=== PATIENT | male | born 1990 | race Caucasian/White ===

== ENCOUNTER 2020-10-22 12:43 | Day surgery (SDC) | payer OTHER ==
[2020-10-22] MEDS ORDERED: LACTATED RINGERS 1,000 ML IV ONE ×2 (12:48→15:29)
[2020-10-22] MEDS ORDERED: MIDAZOLAM 2 MG/2 ML VIAL ONE ×3 (14:50→15:07)
[2020-10-22] MEDS ORDERED: fentaNYL 250 MCG/5 ML VIAL ONE (14:50)
[2020-10-22 15:38] VITALS: BP 115/71
== END 2020-10-22 12:44 | disposition home or self-care (01) ==
LOC: SDS 12:43
PROVIDERS: ATTEND Surgery
PROC: 0DBB8ZX Excision of Ileum, Via Natural or Artificial Opening Endoscopic, Diagnostic (ICD-10-PCS; 2020-10-22)
PROC: 0DBM8ZX Excision of Descending Colon, Via Natural or Artificial Opening Endoscopic, Diagnostic (ICD-10-PCS; 2020-10-22)
PROC: 0DBK8ZX Excision of Ascending Colon, Via Natural or Artificial Opening Endoscopic, Diagnostic (ICD-10-PCS; principal; 2020-10-22 14:30)
DX: K92.1 Melena (principal); R19.4 Change in bowel habit
CPT/HCPCS: 45380; J3010; J7120

== ENCOUNTER 2020-11-19 07:52 | Outpatient (CLI) | payer OTHER ==
--- NOTE | 2020-11-19 09:54 | CT Report ---
PROCEDURE: Sinuses INDICATIONS: HEADACHE, LT FRONT SINUS PAIN AND PRESSURE TECHNIQUE: Noncontrast 3.0 mm axial images acquired from the frontal sinuses to the mid-sella, with coronal and sagittal reformats. For radiation dose reduction, the following was used: automated exposure control , adjustment of mA and/or kV according to patient size. COMPARISON: None. FINDINGS: Image quality: Excellent. Maxillary Sinuses: No bony remodeling or destruction. Mild inferior maxillary sinus mucosal thickeni ng up to 3 mm. Ethmoid Air Cells: No bony remodeling or destruction. Mild bilateral anterior ethmoid air cell mucos al thickening. Sphenoid Sinuses: No bony remodeling or destruction. Sinuses are clear. Frontal Sinuses: No bony remodeling or destruction. Mild inferior frontal sinus mucosal thickening w ithout obstruction of the frontoethmoid recesses. Ostiomeatal Complexes: Ostiomeatal complexes are patent. No Josefa cells. Miscellaneous: Visualized intra-orbital contents are normal. Bilateral estephanie bullosa. No nasal sep masha deviation. IMPRESSION: Trace mucosal thickening in the frontal sinuses, maxillary sinuses, and anterior ethmoid air cells. N o findings of acute or chronic sinusitis. Bilateral estephanie bullosa. Reviewed by: Christopher Bingham MD on 11/19/2020 9:53 AM PST Approved by: Christopher Bingham MD on 11/19/2020 9:53 AM PST Station ID: [id number]
== END 2020-11-19 07:53 | disposition home or self-care (01) ==
LOC: DI 07:52
PROVIDERS: ATTEND Physician Assistant Medical
DX: R51.0 Headache with orthostatic component, not elsewhere classified (principal)

== ENCOUNTER 2021-06-18 19:14 | Emergency (ER) | payer OTHER ==
[2021-06-18 19:24] VITALS: BP 150/90
[2021-06-18 19:40] LABS: BILIRUBIN,URINE NEGATIVE (NEGATIVE); GLUCOSE, URINE (UA) NEGATIVE (NEGATIVE); KETONES,URINE (UA) NEGATIVE (NEGATIVE); LEUKOCYTE ESTERASE, URINE NEGATIVE (NEGATIVE); NITRITE,URINE NEGATIVE (NEGATIVE); OCCULT BLOOD,URINE TRACE-LYSE (NEGATIVE); PROTEIN,URINE NEGATIVE (NEGATIVE); UROBILINOGEN,URINE 0.2 (NORMAL) E.U./dL (NORMAL)
[2021-06-18 19:41] LABS: CLARITY,URINE CLEAR (CLEAR)
--- NOTE | 2021-06-18 20:52 | Ultrasound Report ---
PROCEDURE: Testicle w/Doppler INDICATIONS: testicular pain TECHNIQUE: Real-time scanning was performed of the scrotum and testicles, with image documentation. Color and p ulse Doppler interrogation was performed of both testicles. COMPARISON: None. FINDINGS: Right: Testicle is normal in size at 4.4 x 2.2 x 2.6 cm, and homogenous in echotexture. Epididymis is normal in overall size and morphology. Small hydrocele. No varicocele. Overlying scrotal skin is normal in thickness. Normal arterial and venous flow. Left: Testicle is normal in size at 3.9 x 2.3 x 3.0 cm, and homogeneous in echotexture. Epididymis is normal in overall size and morphology. Small hydrocele. The pampiniform plexus demonstrates varico ying. Overlying scrotal skin is normal in thickness. Normal arterial and venous flow. Doppler: Color and pulse Doppler demonstrate normal and symmetric arterial flow in both testicles. IMPRESSION: 1. Small bilateral hydroceles. 2. Left varicocele. 3. No acute abnormality. Reviewed by: Jose Daniel Merritt on 06/18/2021 8:50 PM PDT Approved by: Jose Daniel Merritt on 06/18/2021 8:50 PM PDT Station ID: [id number]
--- NOTE | 2021-06-18 20:54 | ED Physician Documentation ---
History of Present Illness - Stated complaint Stated Complaint: MALE - Chief complaint Chief Complaint: General - History obtained from History obtained from: Patient - Additonal information Additional information: 31-year-old gentleman with gradual onset right testicular pain over the last 3 days or so. There was no injury. It is not positional. It is at the top of the right testicle. He has no concern for STDs per se. It is not bad enough that he requires pain medication. No associated nausea. Review of Systems Constitutional: reports: Reviewed and negative Eyes: reports: Reviewed and negative Ears: reports: Reviewed and negative Nose: reports: Reviewed and negative Throat: reports: Reviewed and negative Cardiac: reports: Reviewed and negative Respiratory: reports: Reviewed and negative PD PAST MEDICAL HISTORY - Past Medical History Cardiovascular: None Respiratory: None Endocrine/Autoimmune: None GI: None : None HEENT: None Psych: None Musculoskeletal: None Derm: None - Present Medications Home Medications: Ambulatory Orders Medication Instructions Recorded Confirmed Cetirizine HCl [Zyrtec] 10 mg PO DAILY 10/21/20 10/22/20 Fluticasone [Flonase] 1 sprays VENITA DAILY 10/21/20 10/22/20 - Allergies Allergies/Adverse Reactions: Allergies Allergy/AdvReac Type Severity Reaction Status Date / Time No Known Drug Allergies Allergy Verified 06/18/21 19:20 - Social History Does the pt smoke?: No Smoking Status: Never smoker PD ED PE NORMAL - Vitals Vital signs reviewed: Yes - General General: Alert and oriented X 3, No acute distress - Abdomen Abdomen: Normal bowel sounds, Soft, Non tender - Male Male : Other (Testicles are grossly normal with normal lie, normal cremaster reflexes. No inguinal masses or tenderness. No lymphadenopathy. The right testicle is nontender. There is some fullness at the superior part of the right testicle and that is where he points as the location of pain.) - Back Back: No CVA TTP, No spinal TTP - Neuro Neuro: Alert and oriented X 3, Normal speech Results - Vitals Vitals: Vital Signs - 24 hr 06/18/21 19:21 Temperature 36.5 C Heart Rate 90 Respiratory 16 Rate Blood Pressure 150/90 H O2 Saturation 98 Oxygen O2 Source Room air - Labs Labs: Laboratory Tests 06/18/21 19:37 Urine Color LT. YELLOW Urine Clarity CLEAR Urine pH 6.0 Ur Specific Casanova 1.020 Urine Protein NEGATIVE Urine Glucose (UA) NEGATIVE Urine Ketones NEGATIVE Urine Occult Blood TRACE-LYSE Urine Nitrite NEGATIVE Urine Bilirubin NEGATIVE Urine Urobilinogen 0.2 (NORMAL) Ur Leukocyte Esterase NEGATIVE Ur Microscopic Review NOT INDICATED Urine Culture Comments NOT INDICATED - Rads (name of study) Scrotal ultrasound is grossly normal with small bilateral hydroceles and a left varicocele but no evidence of torsion or epididymitis. Radiology: Final report received PD MEDICAL DECISION MAKING - ED course ED course: 31-year-old gentleman with benign exam and right testicular pain. No tenderness, normal lie, nothing in the history or physical or ultrasound to suggest torsion. Departure - Departure Disposition: 01 Home, Self Care Clinical Impression: Testicular pain, right Condition: Good Record reviewed to determine appropriate education?: Yes Instructions: ED Testicular Pain UKO Comments: Return if you worsen, follow-up with your doctor this week for recheck.
== END 2021-06-18 21:18 | disposition home or self-care (01) ==
LOC: ED 19:14
DX: N50.811 Right testicular pain (principal); N43.3 Hydrocele, unspecified; I86.1 Scrotal varices
CPT/HCPCS: 81001; 81003; 87086; 93975; 99283; 99284

== ENCOUNTER 2025-06-22 09:08 | Inpatient (IN) ==
--- OUTSIDE RECORDS SUMMARY | 2025-06-22 10:06 | EXTERNAL MEDICAL SUMMARY RPT | Continuity of Care Document ---
Author Organization [place] Address [address] [place] [address] Phone Problems date description facility 2025-06-22 08:22 [facility], [facility] 2025-06-22 08:22 Streptococcal pharyngitis id[facility] 2025-06-22 08:22 [facility] 2025-06-22 08:22 Pain in right forearm [facility] 2025-06-22 08:22 Other specified soft tissue dis orders [facility] 2025-06-22 08:22 Tachycardia, unspecified [facility] 2025-06-22 09:50 Sepsis, unspecified [facility] 2025-06-22 09:50 [facility] 2025-06-22 09:50 Acute pharyngitis, unspecified [facility] 2025-06-22 09:50 [facility]25-[facility]-22 09:50 Pain in right forearm [facility] 2025-06-22 09:50 Other specified soft tissue dis orders [facility] 2025-06-22 09:50 Tachycardia, unspecified [facility] Social History date description facility
--- NOTE | 2025-06-22 10:12 | ED Physician Documentation ---
PD HPI URI Stated complaint Stated Complaint: RT ARM SWELLING, FEVER, SORE THROAT, LOSS OF VOICE Chief complaint Chief Complaint: General History obtained from History obtained from: Patient History of Present Illness Timing - onset: How many weeks ago (1) Timing duration: Weeks (1) Timing details: Gradual onset and Still present Associated symptoms: Fever, Chills, Sore throat and Swollen nodes Contributing factors: No Travel Improves by: No Rest Similar symptoms before: Has not had sx before Recently seen: Clinic (onset of right forearm pain yesterday and today as well, so went to walk in clinic and rferredt o ED.) Treatment prior to arrival Treatment prior to arrival: given IM dose of rocephin at [facility]. Meds/Allgy Home Medications Ambulatory Orders Medication Instructions Recorded Confirmed No Known Home Medications 06/22/2506/02 Allergies Allergies Allergy/AdvReac Type Severity Reaction Status Date / Time No Known Drug Allergies Allergy Verified 06/22/25 09:50 PFSH Active Problems All Active Problems (Updated 06/22/25 @ 15:57 by Uriel Ellis, DO) Hyponatremia (Acute) Elevated LFTs (Acute) Sepsis (Acute) Cellulitis of right arm (Acute) Tachycardia (Acute) Strep pharyngitis (Acute) Pain and swelling of right forearm (Acute) Social History Social History (Updated 06/22/25 @ 07:47 by Kimberlyn Torres) Smoking Status: Never smoker Do you vape?: No Level: Independent Do you feel safe in your home environment?: Yes History of physical, verbal, emotional, or financial abuse?: No Substance Use: denies use Exam Exam Vital Signs: Vital Signs x48h Temp Pulse Resp BP Pulse Ox 06/22/25 10:52 136 H 98/66 99 06/22/25 10:25 132 H 100/62 99 06/22/25 09:45 39.6 C H 134 H 14 99/60 98 tachycardic and hypotensive, with fever. Constitutional normal general appearance, distress noted (moderate) and average body habitus HENMT oropharynx abnormal (tonsils enlarged) and (exudates) Neck/C-Spine supple and no meningeal signs Lymph lymphadenopathy noted (anterior cervical) Respiratory breath sounds equal bilaterally and normal respiratory effort Cardiovascular heart rate abnormal (tachycardic), regular rhythm noted and no murmur Gastrointestinal abdomen soft to palpation, nontender to palpation and nondistended Extremities right forearm with swelling, redness and tenderness proximal ulnar aspect, some posterior bursal effusion. Not apparent joint fluid. No axillary nodes. no skin sores. Psychiatry oriented x3 and thought process normal Skin jaundice noted (mild jaundice noted. ) Results Vitals Vitals: Vital Signs - 24 hr 06/22/25 09:45 06/22/25 10:25 06/22/25 10:52 Temperature 39.6 C H Temperature Source Oral Pulse Rate 134 H 132 H 136 H Respiratory Rate 14 Blood Pressure 99/60 100/62 98/66 O2 Saturation 98 99 99 O2 Source Room air Room air Room air Pain Intensity 2 4 4 Oxygen O2 Source Room air Labs Labs: Laboratory Tests 06/22/25 10:55 WBC 21.5 H RBC 4.41 L Hgb 12.2 L Hct 35.8 L MCV 81.2 MCH 27.7 MCHC 34.1 RDW 12.7 Plt Count 319 MPV 11.0 Neut # (Auto) Not Reportable Lymph # (Auto) Not Reportable Ferry # (Auto) Not Reportable Eos # (Auto) Not Reportable Baso # (Auto) Not Reportable Absolute Nucleated RBC Not Reportable Total Counted 100 Band Neuts % (Manual) 24 H Abnorm Lymph % (Manual) 0 Metamyelocytes % 2 H Myelocytes % 2 H Nucleated RBC % Not Reportable Neutrophils # (Manual) 20.4 H Lymphocytes # (Manual) 0.0 L Monocytes # (Manual) 0.2 Eosinophils # (Manual) 0.0 Basophils # (Manual) 0.0 Differential Comment MANUAL DIFFERENTIAL Platelet Estimate NORMAL (130-450,000) RBC Morph Micro Appear 2+ ANISOCYTOSIS Sodium 122 L Potassium 3.5 Chloride 82 L Carbon Dioxide 28 Anion Gap 12.0 BUN 12 Creatinine 1.5 H Estimated GFR (MDRD) 53 L Glucose 128 H Lactic Acid 2.9 H Calcium 8.2 L Magnesium 1.2 L Total Bilirubin 3.3 H AST 104 H ALT 225 H Alkaline Phosphatase 114 Total Protein 6.5 Albumin 3.4 Globulin 3.1 Albumin/Globulin Ratio 1.1 Rads (name of study) chest xray: Relevant Findings:: Final report received and EMP independent interpretation of test (no noted infiltrates. normal heart size. ) Interpretation: EXAM: [id number] XR/[id number] ([id number]) PROCEDURE: XR Chest 1V INDICATIONS: Sepsis TECHNIQUE: One view of the chest was acquired. COMPARISON: None. FINDINGS: Surgical changes and devices: None. Lungs and pleura: No pleural effusions or pneumothorax. No consolidation. Mediastinum: Mediastinal contours appear normal. Heart size is normal. Bones and chest wall: No suspicious bony lesions. Overlying soft tissues appear unremarkable. IMPRESSION: No acute cardiopulmonary process. Reviewed by: Saad Leroy MD on 06/22/2025 11:05 AM PDT right forearm US: Relevant Findings:: Final report received Interpretation: EXAM: [id number] US/EXNVLTD ([id number]) PROCEDURE: US Soft Tissue Extremity Lmted INDICATIONS: right forearm swelling and red; has strep throat TECHNIQUE: Real-time scanning was performed of the right forearm and elbow, with image documentation. COMPARISON: None. FINDINGS: In the area of concern of the right forearm and elbow, there is subcutaneous fat edema with mild hyperemia on color Doppler. Overlying dermal thickening. Along the posterior elbow, corresponding to the area of swelling, is a irregularly bordered 3.6 x 3.5 x 1.4 cm hypoechoic focus with thin internal septations. There is mild adjacent hyperemia on color Doppler. IMPRESSION: Right forearm and elbow cellulitis with a 3.6 cm hypoechoic focus along the posterior elbow, which may represent a developing abscess versus possible infectious olecranon bursitis. The sterility of this fluid collection cannot be determined by ultrasound. Reviewed by: Saad Leroy MD on 06/22/2025 12:24 PM PD PD Medical Decision Making ED course Complexity details: considered differential and d/w patient ED course: The patient started with sore throat and fevers and general malaise about a week ago and has had poor oral intake due to the throat pain. He had been feeling feverish as well and has been taking some ibuprofen and Tylenol. He states his oral intake has been less and is feeling generally weak. He noted yesterday into today redness pain and swelling in the right forearm and around the elbow as well. Seen at walk-in care clinic and was noted to be tachycardic and febrile to 39 with tachycardia to 130 and soft blood pressure. Referred to the ER. They did do a rapid strep test there was positive. Here in the ER he is noted to have sepsis markers of tachycardia, febrile, and he does appear dry mucous membranes. He is mentating well. His forearm does show swelling and tenderness in the proximal forearm to around the elbow. The elbow itself does not appear to have a effusion. Ultrasound was performed and showed cellulitic changes with a olecranon fluid collection approximately 3.6 cm. The patient does have apparent sepsis with an elevated white count of 21,000 with 24% bands. He has a elevated lactate at 2.9. His creatinine is elevated at 1.5 without a prior baseline. LFTs show bilirubin at 3.3 and AST and ALT only mildly elevated at 104 and 225. Alk phos is normal. Sounds more likely related to illness. I deferred any abdominal imaging as of yet. Sodium is 122 and again presumed to recent hydration and poor intake and illness. I did subsequently then contact the hospitalist to review the findings and agreement is the patient is ill enough to need hospitalization. Discharge Plan Discharge Patient Disposition: [facility] DC/Xfer Condition: Stable Clinical Impression: Pain and swelling of right forearm, Strep pharyngitis, Tachycardia, Cellulitis of right arm, Elevated LFTs Sepsis Qualifiers: Sepsis type: sepsis due to unspecified organism Sepsis acute organ dysfunction status: unspecified Qualified Code(s): A41.9 - Sepsis, unspecified organism Interventions: ED Admission Assessment Last Done: 06/22/25 13:35 Vitals documented within 30 minutes of discharge?: Yes
[2025-06-22 11:04] LABS: HCT - HEMATOCRIT 35.8 % (42.0-52.0); HGB - HEMOGLOBIN 12.2 g/dL (14.0-18.0); MEAN PLATELET VOLUME 11.0 fL (7.4-11.4); PLT - PLATELET COUNT 319 10^3/uL (130-450); RED CELL DISTRIBUTION WIDTH 12.7 % (12.0-15.0)
[2025-06-22 11:08] LABS: ABNORMAL LYMPHS % (MANUAL) 0 %; BASOPHILS # (MANUAL) 0.0 10^3/uL (0-0.1); EOSINOPHILS # (MANUAL) 0.0 10^3/uL (0-0.7); LYMPHOCYTES # (MANUAL) 0.0 10^3/uL (1.5-3.5); LYMPHOCYTES % (MANUAL) 0 %
--- NOTE | 2025-06-22 11:08 | XRAY Report ---
PROCEDURE: XR Chest 1V INDICATIONS: Sepsis TECHNIQUE: One view of the chest was acquired. COMPARISON: None. FINDINGS: Surgical changes and devices: None. Lungs and pleura: No pleural effusions or pneumothorax. No consolidation. Mediastinum: Mediastinal contours appear normal. Heart size is normal. Bones and chest wall: No suspicious bony lesions. Overlying soft tissues appear unremarkable. IMPRESSION: No acute cardiopulmonary process. Reviewed by: Saad Leroy MD on 06/22/2025 11:05 AM PDT Approved by: Saad Leroy MD on 06/22/2025 11:05 AM PDT Station ID: [id number]
[2025-06-22 11:24] LABS: BAND NEUTROPHILS % (MANUAL) 24 %; METAMYELOCYTES % (MANUAL) 2 %; MONOCYTES # (MANUAL) 0.2 10^3/uL (0.0-1.0); MYELOCYTES % (MANUAL) 2 %; NEUTROPHILS # (MANUAL) 20.4 10^3/uL (1.5-6.6); PLATELET ESTIMATE, MANUAL NORMAL (130-450,000) (NORMAL); RBC MORPHOLOGY (MULTIPLE) 2+ ANISOCYTOSIS (NORMAL)
[2025-06-22 11:25] LABS: ALT ALANINE AMINOTRANSFERASE 225.0 IU/L (10-60); AST ASPARTATE AMINOTRANSFERASE 104.0 IU/L (10-42); BUN - BLOOD UREA NITROGEN 12.0 mg/dL (6-20); CARBON DIOXIDE - CO2 28.0 mmol/L (21-32); CREATININE 1.5 mg/dL (0.6-1.3); GFR - MDRD 53.0 (>89)
--- NOTE | 2025-06-22 12:28 | Ultrasound Report ---
PROCEDURE: US Soft Tissue Extremity Lmted INDICATIONS: right forearm swelling and red; has strep throat TECHNIQUE: Real-time scanning was performed of the right forearm and elbow, with image documentation. COMPARISON: None. FINDINGS: In the area of concern of the right forearm and elbow, there is subcutaneous fat edema with mild hyperemia on color Doppler. Overlying dermal thickening. Along the posterior elbow, corresponding to the area of swelling, is a irregularly bordered 3.6 x 3.5 x 1.4 cm hypoechoic focus with thin internal septations. There is mild adjacent hyperemia on color Doppler. IMPRESSION: Right forearm and elbow cellulitis with a 3.6 cm hypoechoic focus along the posterior elbow, which may represent a developing abscess versus possible infectious olecranon bursitis. The sterility of this fluid collection cannot be determined by ultrasound. Reviewed by: Saad Leroy MD on 06/22/2025 12:24 PM PDT Approved by: Saad Leroy MD on 06/22/2025 12:24 PM PDT Station ID: [id number]
[2025-06-22] MEDS: SODIUM CHLORIDE 0.9% 2,430 ML IV STA (12:33)
[2025-06-22] MEDS: AMPICILLIN/SULBACTAM 3 GM in SODIUM CHLORIDE 0.9% MINIBAG 100 ML IV STA (12:40)
--- NOTE | 2025-06-22 13:26 | HISTORY & PHYSICAL EXAMINATION ---
Chief Complaint Chief Complaint Chief Complaint: Sore throat History of Present Illness Admitted From Admitted From:: ED History [facility]btained [facility] History obtained from: Patient, Family, EMR History of Present Illness HPI Comment/Other: This is a 35-year-old previously healthy male who presented after 2 weeks of sore throat. He has been at home trying to manage his symptoms with [id number] treatments. For reasons not quite clear to me, he sought care at the urgent care today. He was found to be strep positive. He additionally has a mass on his right elbow that is concerning for abscess versus septic bursitis. It appears cellulitic at least. In the ED, he was found to be febrile. Blood pressure is soft at 98/66. He has been tachycardic up to 136. Shock index is 1.4. He has started getting IV fluids in the ED, and his blood pressure has improved already. He will be admitted to the ICU with concern for invasive strep infection. I discussed with his as well, she confirms the above history. Patient and both agree that he is full code. Meds/Allgy Home Medications Ambulatory Orders Medication Instructions Recorded Confirmed No Known Home Medications 06/22/2506/02 Allergies Allergies Allergy/AdvReac Type Severity Reaction Status Date / Time No Known Drug Allergies Allergy Verified 06/22/25 09:50 PFSH Active Problems All Active Problems (Updated 06/22/25 @ 15:57 by Uriel Ellis, DO) Hyponatremia (Acute) Elevated LFTs (Acute) Sepsis (Acute) Cellulitis of right arm (Acute) Tachycardia (Acute) Strep pharyngitis (Acute) Pain and swelling of right forearm (Acute) Social History Social History (Updated 06/22/25 @ 07:47 by Kimberlyn Torres) Smoking Status: Never smoker Do you vape?: No Level: Independent Do you feel safe in your home environment?: Yes History of physical, verbal, emotional, or financial abuse?: No Substance Use: denies use POLST Patient has POLST: No Exam Exam Vital Signs: Vital Signs x48h Temp Pulse Pulse Resp BP BP Pulse Ox 06/22/25 15:00 128 H 21 123/61 95 06/22/25 14:00 132 H 31 H 152/73 H 100 06/22/25 13:40 37.9 C 134 H 23 141/91 H 100 06/22/25 10:52 136 H 98/66 99 06/22/25 10:25 132 H 100/62 99 06/22/25 09:45 39.6 C H 134 H 14 99/60 98 GEN: No acute distress, resting. Somnolent but arouses easily. Toxic appearing. HEENT: NC/AT, voice hoarse, Tonsils are normal size. Suppurative exudate along the posterior pharynx. Cervical LAD bilaterally. Cardiac: Tachycardic and regular. No murmurs appreciated. Pulm: Lungs CTA bilaterally, no cough, no wheezes Abdomen: Soft, nontender, nondistended. No rebound or guarding Extremities: Erythematous, warm mass on his right elbow with surrounding erythema. Tender. Neuro: Face symmetric, CN II through XII intact grossly. No focal deficits. Gait exam deferred Psych: Mood euthymic with congruent affect. Conclusion/Plan Problem List (1) Sepsis: Plan: Patient presents with septic physiology including fever, leukocytosis, tachycardia. He has been sick for the last 1 to 2 weeks. He has had a sore throat. He is found to be strep positive as below. Shock index 1.4 in the ED, has downgraded to 0.8. Got 1.2 L fluid bolus ordered in the ER, not sure if it completed. Held off on further given his hyponatremia. Likely source is his strep pharyngitis. He also has likely cellulitis or abscess in the right arm. Suspect of the same etiology. * Patient is at high risk for decompensation, admitted to the ICU * Treatment of strep as below * Follow-up blood cultures * Trend lactate * CBC AM * Defer further fluids until follow-up sodium lab, or if shock worsens Qualifiers: Sepsis acute organ dysfunction status: unspecified Sepsis type: sepsis due to unspecified organism Qualified Code(s): A41.9 - Sepsis, unspecified organism (2) Strep pharyngitis: Plan: Given his septic physiology, he is at risk for strep toxic shock syndrome and invasive streptococcal infection. * Admitting to the ICU as above * Starting on clindamycin, vancomycin and Zosyn * Follow-up culture sensitivities, likely de-escalate to clindamycin and Ancef (3) Cellulitis of right arm: Plan: POCUS in the ED did reveal a irregular bordered 3.6 x 3.5 cm area of focus in the right elbow. Olecranon bursitis versus developing abscess. I discussed his case with on-call orthopedics, Dr. Holcomb, who will try and drain it at bedside versus take him to the operating room to fully open it up. Patient says that his arm erythema has been worsening over the last day or so, only popped up around 06/20. * Patient n.p.o. for possible surgical procedure * Antibiotics as above (4) Hyponatremia: Plan: Sodium 121 on admission. Of unclear etiology. His history is most consistent with this being hypovolemic hyponatremia and low solute intake over the preceding days as he has not been eating or drinking much. He does not look particularly volume overloaded. However his urine collected in the ED does not look concentrated. Specific gravity is normal. This may be in part a syndrome of inappropriate antidiuretic hormone. The patient is not symptomatic, to does not need acute rise in sodium. * Check urine osmole, urine sodium, serum osmolality * Every 6 hour sodium checks * Undetermined chronicity of hyponatremia, limit Na rise by 8 points in 1 day. (5) Elevated LFTs: Plan: Likely multifactorial in the setting of his acute illness as well as multiple doses of Tylenol and [id number] treatments he has been using. * Trend CMP a.m. Lab Results 06/22/25 10:55 06/22/25 10:55
[2025-06-22] MEDS ORDERED: ONDANSETRON 4 MG/2 ML VIAL IVP PRN (13:32)
[2025-06-22] MEDS ORDERED: ONDANSETRON ODT 4 MG TABLET TL PRN (13:32)
[2025-06-22] MEDS ORDERED: oxyCODONE 5 MG TABLET PO PRN ×2 (13:32)
[2025-06-22] MEDS ORDERED: ALBUTEROL NEB 2.5 MG/3 ML INH PRN (13:32)
[2025-06-22] MEDS: ACETAMINOPHEN 325 MG TABLET PO PRN (14:08)
[2025-06-22] MEDS: CLINDAMYCIN 900 MG/50 ML 900 MG/50 ML BAG IV SCH (14:10)
[2025-06-22 16:32] LABS: GLUCOSE, URINE (UA) NEGATIVE (NEGATIVE); KETONES,URINE (UA) NEGATIVE (NEGATIVE); OCCULT BLOOD,URINE LARGE (NEGATIVE)
[2025-06-22] MEDS ORDERED: GADOTERATE MEGLUMINE 10 MMOL/20 ML VIAL ONE (17:10)
[2025-06-22] MEDS: MAGNESIUM SULFATE 2 GRAM 2 GM/50 ML BAG IV SCH (17:11)
[2025-06-22] MEDS: POTASSIUM CHLORIDE 20 MEQ TABLET PO SCH (17:11)
[2025-06-22] MEDS: SODIUM CHLORIDE FLUSH 0.9% 10 ML SYRINGE IVP SCH (17:13)
[2025-06-22] MEDS: LACTATED RINGERS 1,000 ML IV ONE ×2 (17:13→22:21)
[2025-06-22 17:17] LABS: AMORPHOUS SEDIMENT,UR Few /LPF; SQUAMOUS EPITHELIAL CELL,UR RARE Squamous (<= Few)
[2025-06-22 17:18] LABS: CASTS, URINE 26-50 Fine Granular /LPF
[2025-06-22] MEDS: GADOTERATE MEGLUMINE 10 MMOL/20 ML VIAL IVP ONE (19:03)
--- NOTE | 2025-06-22 19:13 | MRI Report ---
PROCEDURE: MRI Elbow RT W/WO INDICATIONS: Abscess vs necrotizing infection CONTRAST: 16.4ml Clariscan TECHNIQUE: Noncontrast coronal proton density fast spin echo and T2 fast spin echo with fat saturation, coronal T1 spin echo with fat saturation, axial and sagittal T1 spin echo and T2 fast spin echo with fat saturation through the elbow. Post-contrast coronal, axial, and sagittal T1 spin echo with fat saturation through the elbow. COMPARISON: None. FINDINGS: Image quality: Excellent. Lateral structures: The lateral ulnar collateral ligament and radial collateral ligament both appear intact. The overlying common extensor tendon also appears normal. Medial structures: The ulnar collateral ligament appears intact. The overlying common flexor tendon appears normal. The ulnar nerve appears normal in size and signal within the cubital tunnel. Anterior structures: The biceps and brachialis tendons both appear intact as they insert onto the proximal radius and ulna, respectively. No bicipitoradial bursal fluid. The median and radial neurovascular bundles appear normal; no focal muscle atrophy to suggest nerve impingement. Posterior structures: The triceps tendon appears intact. Fluid collection along expected location of the olecranon bursa measuring approximately 3.0 x 2.5 x 2.8 cm. Surrounding subcutaneous edema. Bone and cartilage: No suspicious osseous enhancement. No bone marrow contusions or fractures. No osteochondral injuries. Skin and subcutaneous fat: Circumferential subcutaneous edema. No deep fascial edema. No evidence of air. IMPRESSION: Olecranon bursitis. Correlate clinically for infection. No evidence of fasciitis, osteomyelitis or septic arthritis. Reviewed by: Tyler Varela MD on 06/22/2025 7:09 PM PDT Approved by: Tyler Varela MD on 06/22/2025 7:09 PM PDT Station ID: [id number]
[2025-06-22] MEDS: HEPARIN 5,000 UNIT/ML VIAL SUBQ SCH (20:14)
[2025-06-22] MEDS: SODIUM CHLORIDE FLUSH 0.9% 10 ML SYRINGE IVP PRN (20:14)
[2025-06-22] MEDS: KETOROLAC 30 MG/ML VIAL IVP PRN (21:26)
[2025-06-22] MEDS: ACETAMINOPHEN 1,000 MG/100 ML 1,000 MG/100 ML BAG IV ONE (23:44)
[2025-06-23] MEDS: LACTATED RINGERS 1,000 ML IV SCH (00:05)
[2025-06-23 05:07] LABS: HGB - HEMOGLOBIN 10.6 g/dL (14.0-18.0); RED CELL DISTRIBUTION WIDTH 13.2 % (12.0-15.0)
[2025-06-23 05:12] LABS: HCT - HEMATOCRIT 31.1 % (42.0-52.0); MEAN PLATELET VOLUME 11.7 fL (7.4-11.4); PLT - PLATELET COUNT 255 10^3/uL (130-450)
[2025-06-23 05:24] LABS: ALT ALANINE AMINOTRANSFERASE 143.0 IU/L (10-60); AST ASPARTATE AMINOTRANSFERASE 67.0 IU/L (10-42); BUN - BLOOD UREA NITROGEN 24.0 mg/dL (6-20); CARBON DIOXIDE - CO2 25.0 mmol/L (21-32); CREATININE 1.8 mg/dL (0.6-1.3); GFR - MDRD 43.0 (>89)
[2025-06-23 05:29] LABS: ABNORMAL LYMPHS % (MANUAL) 0 %; BASOPHILS # (MANUAL) 0.0 10^3/uL (0-0.1); EOSINOPHILS # (MANUAL) 0.0 10^3/uL (0-0.7); LYMPHOCYTES # (MANUAL) 0.0 10^3/uL (1.5-3.5); LYMPHOCYTES % (MANUAL) 0 %
[2025-06-23 05:37] LABS: PHOSPHORUS 4.5 mg/dL (2.5-5.0)
[2025-06-23 06:06] LABS: VBG PH 7.488 (7.31-7.41)
[2025-06-23 06:35] LABS: BAND NEUTROPHILS % (MANUAL) 33 %; MONOCYTES # (MANUAL) 0.5 10^3/uL (0.0-1.0); NEUTROPHILS # (MANUAL) 16.2 10^3/uL (1.5-6.6); PLATELET ESTIMATE, MANUAL NORMAL (130-450,000) (NORMAL); PLATELET MORPHOLOGY NORMAL APPEARANCE (NORMAL); RBC MORPHOLOGY (MULTIPLE) NORMAL APPEARANCE (NORMAL); WBC MORPHOLOGY (MULTIPLE) NORMAL APPEARANCE (NORMAL)
--- NOTE | 2025-06-23 09:23 | ANESTHESIA PROCEDURE NOTE ---
Pre-Anesthesia VS, & Labs Diagnosis Surgical Diagnosis:: cellulitis right arm Procedure Procedure: Irrigation and Debridement right arm Vitals Vital Signs: Temp Pulse Resp BP Pulse Ox 37.6 C 114 H 98 H 108/55 L 31 L 06/23/25 09:00 06/23/25 11:00 06/23/25 11:00 06/23/25 11:00 06/23/25 11:00 NPO NPO: >8 hours Lab Results Current Lab Results: Laboratory Tests 06/23/25 04:54: WBC 16.7 H, RBC 3.80 L, Hgb 10.6 L, Hct 31.1 L, MCV 81.8, MCH 27.9, MCHC 34.1, RDW 13.2, Plt Count 255, MPV 11.7 H, Neut # (Auto) Not Reportable, Lymph # (Auto) Not Reportable, Dare # (Auto) Not Reportable, Eos # (Auto) Not Reportable, Baso # (Auto) Not Reportable, Absolute Nucleated RBC Not Reportable, Total Counted 100, Band Neuts % (Manual) 33 H, Abnorm Lymph % (Manual) 0, Nucleated RBC % Not Reportable, Neutrophils # (Manual) 16.2 H, L ymphocytes # (Manual) 0.0 L, Monocytes # (Manual) 0.5, Eosinophils # (Manual) 0.0, Basophils # (Manual) 0.0, Differential Comment MANUAL DIFFERENTIAL, WBC Morphology NORMAL APPEARANCE, Platelet Estimate NORMAL (130-450,000), Platelet Morphology NORMAL APPEARANCE, RBC Morph Micro Appear NORMAL APPEARANCE, VBG pH 7.488 H, Ionized Calcium 1.02 L, Sodium 126 L, Potassium 3.9, Chloride 91 L, Carbon Dioxide 25, Anion Gap 10.0, BUN 24 H, Creatinine 1.8 H, Estimated GFR (MDRD) 43 L, Glucose 107 H, Calcium 7.4 L, Phosphorus 4.5, Magnesium 2.4 H, T otal Bilirubin 2.4 H, AST 67 H, ALT 143 H, Alkaline Phosphatase 74, Total Protein 5.1 L, Albumin 2.5 L, Globulin 2.6, Albumin/Globulin Ratio 1.0 06/23/25 00:47: Lactic Acid 1.4 06/22/25 21:22: Lactic Acid 2.7 H 06/22/25 16:00: Sodium 121 L 06/22/25 14:23: Lactic Acid 3.8 H* 06/22/25 10:55: WBC 21.5 H, RBC 4.41 L, Hgb 12.2 L, Hct 35.8 L, MCV 81.2, MCH 27.7, MCHC 34.1, RDW 12.7, Plt Count 319, MPV 11.0, Neut # (Auto) Not Reportable, Lymph # (Auto) Not Reportable, Dare # (Auto) Not Reportable, Eos # (Auto) Not Reportable, Baso # (Auto) Not Reportable, Absolute Nucleated RBC Not Reportable, Total Counted 100, Band Neuts % (Manual) 24 H, Abnorm Lymph % (Manual) 0, Metamyelocytes % 2 H, Myelocytes % 2 H, Nucleated RBC % Not Reportable, Neutrophils # (Manual) 20.4 H, Lymphocytes # (Manual) 0.0 L, Monocytes # (Manual) 0.2, Eosinophils # (Manual) 0.0, Basophils # (Manual) 0.0, Differential Comment MANUAL DIFFERENTIAL, Platelet Estimate NORMAL (130- 450,000), RBC Morph Micro Appear 2+ ANISOCYTOSIS, Sodium 122 L, Potassium 3.5, Chloride 82 L, Carbon Dioxide 28, Anion Gap 12.0, BUN 12, Creatinine 1.5 H, E stimated GFR (MDRD) 53 L, Glucose 128 H, Lactic Acid 2.9 H, Calcium 8.2 L, M agnesium 1.2 L, Total Bilirubin 3.3 H, AST 104 H, ALT 225 H, Alkaline Phosphatase 114, Total Protein 6.5, Albumin 3.4, Globulin 3.1, Albumin/Globulin Ratio 1.1 06/23/25 04:54 06/23/25 04:54 Meds/Allgy Home Medications Ambulatory Orders Medication Instructions Recorded Confirmed No Known Home Medications 06/22/25 0911/25 Allergies Allergies Allergy/AdvReac Type Severity Reaction Status Date / Time No Known Drug Allergies Allergy Verified 06/22/25 09:50 PFS Active Problems All Active Problems (Updated 06/22/25 @ 15:57 by Uriel Ellis DO) Hyponatremia (Acute) Elevated LFTs (Acute) Sepsis (Acute) Cellulitis of right arm (Acute) Tachycardia (Acute) Strep pharyngitis (Acute) Pain and swelling of right forearm (Acute) Social History Social History (Updated 06/22/25 @ 07:47 by Kimberlyn Torres) Smoking Status: Never smoker Do you vape?: No Level: Independent Do you feel safe in your home environment?: Yes History of physical, verbal, emotional, or financial abuse?: No Substance Use: denies use POLST Patient has POLST: No Anesthesia Exam (Expanded) Exam General: Alert, Oriented x3 and Cooperative Dental: WNL Mouth Opening: Greater than 4 Fingerbreadths Neck Mobility: Normal Mallampati classification: I Thyromental Distance: greater than 6 cm Respiratory: Lungs clear Cardiovascular: Regular rate Exam Exam Vital Signs: Vital Signs x48h Temp Pulse Resp BP Pulse Ox 06/23/25 11:00 114 H 98 H 108/55 L 31 L 06/23/25 10:00 117 H 17 146/71 H 98 06/23/25 09:00 37.6 C 108 H 22 114/57 L 99 06/23/25 08:00 102 H 16 106/51 L 98 06/23/25 07:00 100 25 H 101/58 L 99 06/23/25 06:00 99 16 103/54 L 99 06/23/25 05:00 100 19 110/59 L 98 06/23/25 04:00 36.4 C L 104 H 14 98/59 L 98 Plan Problem List (1) Sepsis: Plan: Patient presents with septic physiology including fever, leukocytosis, tachycardia. He has been sick for the last 1 to 2 weeks. He has had a sore throat. He is found to be strep positive as below. Shock index 1.4 in the ED, has downgraded to 0.8. Got 1.2 L fluid bolus ordered in the ER, not sure if it completed. Held off on further given his hyponatremia. Likely source is his strep pharyngitis. He also has likely cellulitis or abscess in the right arm. Suspect of the same etiology. * Patient is at high risk for decompensation, admitted to the ICU * Treatment of strep as below * Follow-up blood cultures * Trend lactate * CBC AM * Defer further fluids until follow-up sodium lab, or if shock worsens Qualifiers: Sepsis acute organ dysfunction status: unspecified Sepsis type: sepsis due to unspecified organism Qualified Code(s): A41.9 - Sepsis, unspecified organism (2) Strep pharyngitis: Plan: Given his septic physiology, he is at risk for strep toxic shock syndrome and invasive streptococcal infection. * Admitting to the ICU as above * Starting on clindamycin, vancomycin and Zosyn * Follow-up culture sensitivities, likely de-escalate to clindamycin and Ancef (3) Cellulitis of right arm: Plan: POCUS in the ED did reveal a irregular bordered 3.6 x 3.5 cm area of focus in the right elbow. Olecranon bursitis versus developing abscess. I discussed his case with on-call orthopedics, Dr. Holcomb, who will try and drain it at bedside versus take him to the operating room to fully open it up. Patient says that his arm erythema has been worsening over the last day or so, only popped up around 06/20. * Patient n.p.o. for possible surgical procedure * Antibiotics as above (4) Hyponatremia: Plan: Sodium 121 on admission. Of unclear etiology. His history is most consistent with this being hypovolemic hyponatremia and low solute intake over the preceding days as he has not been eating or drinking much. He does not look particularly volume overloaded. However his urine collected in the ED does not look concentrated. Specific gravity is normal. This may be in part a syndrome of inappropriate antidiuretic hormone. The patient is not symptomatic, to does not need acute rise in sodium. * Check urine osmole, urine sodium, serum osmolality * Every 6 hour sodium checks * Undetermined chronicity of hyponatremia, limit Na rise by 8 points in 1 day. (5) Elevated LFTs: Plan: Likely multifactorial in the setting of his acute illness as well as multiple doses of Tylenol and [id number] treatments he has been using. * Trend CMP a.m. Plan Anesthesia Type: General Consent for Procedure(s) Verified and Reviewed: Yes Code Status: Attempt Resuscitation ASA Classification ASA classification: 2-Mild systemic disease Is this case an emergency?: Yes
--- NOTE | 2025-06-23 09:46 | PROVIDER PROGRESS NOTE ---
Subjective Subjective Subjective: This morning, patient has improved ability of his right arm. He states that he had a sore throat 2 weeks ago, and he noted that his right elbow started causing him pain yesterday. He was unable to move it. This morning, he still has continued pain, fevers, chills. Orthopedic surgery spoken withthey did take the patient to the OR, and completed washout of the area. MRI was reviewedthe addendum indicates thin deep intramuscular fascial edema and volar compartment with muscle edema suggestive of myositis and fasciitis in addition to the olecranon bursitis, which is likely septic given the extent of the edema. I have reached out to hand surgery at [place] for opinion on possible transfer for further specialized care, including hand surgery and infectious disease. Diet: NPO in anticipation of surgery DVT: Heparin subq Dispo: Likely home on d/c Code: Full Current Medications Current Medications Current Medications: Current Medications Generic Name Dose Route Start Last Admin Trade Name Freq PRN Reason Stop Dose Admin Acetaminophen 650 mg 06/22/25 13:32 06/22/25 20:14 Acetaminophen 325 Mg Tablet PO 650 mg Q4HR PRN Administration Pain 1 to 4, or Fever Albuterol 2.5 mg 06/22/25 13:32 Albuterol Neb 2.5 Mg/3 Ml INH Q4HR PRN Wheezing Heparin Sodium (Porcine) 5,000 unit 06/22/25 21:00 06/23/25 09:28 Heparin 5,000 Unit/Ml Vial SUBQ Not Given BID TEE Clindamycin/Sodium Chloride 900 mg in 50 mls @ 50 mls/hr 06/22/25 14:00 06/23/25 06:09 Cleocin 900 Mg/50 Ml IV Infused Q8HR TEE Infusion Lactated Ringer's 1,000 mls @ 125 mls/hr 06/23/25 00:00 06/23/25 09:29 Lr IV 125 mls/hr .Q8H TEE Administration Vancomycin HCl 2 gm/ Sodium 500 mls @ 250 mls/hr 06/23/25 10:00 Chloride IV 06/23/25 11:59 ONCE ONE Piperacillin Sod/Tazobactam 100 mls @ 200 mls/hr 06/23/25 09:35 Sod 3.375 gm/ Sodium Chloride IV 06/23/25 10:04 ONCE ONE Piperacillin Sod/Tazobactam 100 mls @ 25 mls/hr 06/23/25 13:00 Sod 3.375 gm/ Sodium Chloride IV Q8H [facility] Ketorolac Tromethamine 30 mg 06/22/25 20:41 06/22/25 21:26 Ketorolac 30 Mg/Ml Vial IVP 06/27/25 20:40 30 mg Q6HR PRN Administration Pain or Fever > 38C (100.4F) Ondansetron HCl 4 mg 06/22/25 13:32 Ondansetron Odt 4 Mg Tablet TL Q6HR PRN Nausea / Vomiting Ondansetron HCl 4 mg 06/22/25 13:32 Ondansetron 4 Mg/2 Ml Vial IVP Q6HR PRN Nausea / Vomiting Oxycodone HCl 5 mg 06/22/25 13:32 Oxycodone 5 Mg Tablet PO Q4HR PRN Pain 5 to 7 Oxycodone HCl 10 mg 06/22/25 13:32 Oxycodone 5 Mg Tablet PO Q4HR PRN Pain 8 to 10 Sodium Chloride 10 ml 06/22/25 17:00 06/23/25 09:29 Sodium Chloride Flush 0.9% 10 Ml Syringe IVP Not Given 0100,0900,1700 [facility] Sodium Chloride 10 ml 06/22/25 13:32 06/22/25 20:14 Sodium Chloride Flush 0.9% 10 Ml Syringe IVP 10 ml PRN PRN Administration NEEDED PER PROVIDER ORDERS Objective Vital Signs/Intake & Output Reviewed Vital Signs: Yes Vital Signs: Vital Signs x48h Temp Pulse Resp BP Pulse Ox 06/23/25 09:00 99.7 F 108 H 22 114/57 L 99 06/23/25 08:00 102 H 16 106/51 L 98 06/23/25 07:00 100 25 H 101/58 L 99 06/23/25 06:00 99 16 103/54 L 99 06/23/25 05:00 100 19 110/59 L 98 06/23/25 04:00 97.5 F L 104 H 14 98/59 L 98 06/23/25 03:00 98 16 97/55 L 98 06/23/25 02:00 97.7 F 99 14 105/56 L 95 Intake & Output: Intake & Output 06/20/25 06/21/25 06/22/2506/23/25 23:59 23:59 23:59 23:59 Intake Total 4100 / 4100 2150 / 2150 Output Total 1150 / 1150 1150 / 1150 Balance 2950 / 2950 1000 / 1000 Weight (kg) 82 kg 84 kg Objective General Appearance: positive No acute distress and Alert; negative Anxious Eyes Bilateral: positive Normal inspection, PERRL and EOMI ENT: positive ENT inspection nml, Pharyngeal erythema and Dry mucous membranes; negative Pharynx nml Neck: positive Nml inspection, Thyroid nml and No JVD Respiratory: positive Chest non-tender, No respiratory distress and Breath sounds nml; negative Wheezes, Rales or Rhonchi Cardiovascular: positive No murmur, No gallop and Tachycardia; negative Systolic murmur Abdomen: positive Non-tender, No organomegaly and No distention; negative Guarding or Splenomegaly Back: positive Nml inspection; negative CVA tenderness (R) or CVA tenderness (L) Skin: positive Other (Right extremity with extensive swelling, erythema noted diffusely. Bullae formation around elbow, as well as hand. ) Neurologic/Psychiatric: positive Oriented x3, Motor nml and Mood/affect nml Lab Results 06/23/25 04:54 06/23/25 04:54 Other Labs: Lab Results x24hrs 06/23/25 06/23/25 06/22/25 Range/Units 04:54 00:47 21:22 WBC 16.7 H (4.8-10.8) x10^3/uL RBC 3.80 L (4.70-6.10) 10^6/uL Hgb 10.6 L (14.0-18.0) g/dL Hct 31.1 L (42.0-52.0) % MCV 81.8 (80.0-94.0) fL MCH 27.9 (27.0-31.0) pg MCHC 34.1 (32.0-36.0) g/dL RDW 13.2 (12.0-15.0) % Plt Count 255 (130-450) 10^3/uL MPV 11.7 H (7.4-11.4) fL Neut # (Auto) Not Reportable Lymph # (Auto) Not Reportable [place] # (Auto) Not Reportable Eos # (Auto) Not Reportable Baso # (Auto) Not Reportable Absolute Nucleated RBC Not Reportable Total Counted 100 Band Neuts % (Manual) 33 H (0 - 10) % Abnorm Lymph % (Manual) 0 % Metamyelocytes % ( - 0) % Myelocytes % ( - 0) % Nucleated RBC % Not Reportable Neutrophils # (Manual) 16.2 H (1.5-6.6) 10^3/uL Lymphocytes # (Manual) 0.0 L (1.5-3.5) 10^3/uL Monocytes # (Manual) 0.5 (0.0-1.0) 10^3/uL Eosinophils # (Manual) 0.0 (0-0.7) 10^3/uL Basophils # (Manual) 0.0 (0-0.1) 10^3/uL Differential Comment MANUAL DIFFERENTIAL WBC Morphology NORMAL APPEARANCE (NORMAL) Platelet Estimate NORMAL (130-450,000) (NORMAL) Platelet Morphology NORMAL APPEARANCE (NORMAL) RBC Morph Micro Appear NORMAL APPEARANCE (NORMAL) VBG pH 7.488 H (7.31-7.41) Ionized Calcium 1.02 L (1.09-1.30) mmol/L Sodium 126 L (135-145) mmol/L Potassium 3.9 (3.5-4.5) mmol/L Chloride 91 L (101-111) mmol/L Carbon Dioxide 25 (21-32) mmol/L Anion Gap 10.0 (6-13) BUN 24 H (6-20) mg/dL Creatinine 1.8 H (0.6-1.3) mg/dL Estimated GFR (MDRD) 43 L (>89) Glucose 107 H (74-104) mg/dL Lactic Acid 1.4 2.7 H (0.5-2.2) mmol/L Calcium 7.4 L (8.5-10.3) mg/dL Phosphorus 4.5 (2.5-5.0) mg/dL Magnesium 2.4 H (1.7-2.3) mg/dL Total Bilirubin 2.4 H (0.2-1.0) mg/dL AST 67 H (10-42) IU/L ALT 143 H (10-60) IU/L Alkaline Phosphatase 74 (42-121) IU/L Total Protein 5.1 L (6.4-8.9) g/dL Albumin 2.5 L (3.2-5.5) g/dL Globulin 2.6 (2.1-4.2) g/dL Albumin/Globulin Ratio 1.0 (1.0-2.2) Urine Color Urine Clarity (CLEAR) Urine pH (5.0-7.5) PH Ur Specific [place] (1.002-1.030) Urine Protein (NEGATIVE) mg/dL Urine Glucose (UA) (NEGATIVE) mg/dL Urine Ketones (NEGATIVE) mg/dL Urine Occult Blood (NEGATIVE) Urine Nitrite (NEGATIVE) Urine Bilirubin (NEGATIVE) Urine Urobilinogen (NORMAL) E.U./dL Ur Leukocyte Esterase (NEGATIVE) Urine RBC (0-5) /HPF Urine WBC (0-3) /HPF Ur Squamous Epith Cells (<= Few) Amorphous Sediment /LPF Urine Bacteria (None Seen) /HPF Urine Casts /LPF Ur Microscopic Review Urine Culture Comments Urine Sodium mmol/L Nasal Screen MRSA (PCR) (NEGATIVE) 06/22/25 06/22/25 06/22/25 Range/Units 16:00 14:55 14:23 WBC (4.8-10.8) x10^3/uL RBC (4.70-6.10) 10^6/uL Hgb (14.0-18.0) g/dL Hct (42.0-52.0) % MCV (80.0-94.0) fL MCH (27.0-31.0) pg MCHC (32.0-36.0) g/dL RDW (12.0-15.0) % Plt Count (130-450) 10^3/uL MPV (7.4-11.4) fL Neut # (Auto) Lymph # (Auto) [place] # (Auto) Eos # (Auto) Baso # (Auto) Absolute Nucleated RBC Total Counted Band Neuts % (Manual) (0 - 10) % Abnorm Lymph % (Manual) % Metamyelocytes % ( - 0) % Myelocytes % ( - 0) % Nucleated RBC % Neutrophils # (Manual) (1.5-6.6) 10^3/uL Lymphocytes # (Manual) (1.5-3.5) 10^3/uL Monocytes # (Manual) (0.0-1.0) 10^3/uL Eosinophils # (Manual) (0-0.7) 10^3/uL Basophils # (Manual) (0-0.1) 10^3/uL Differential Comment WBC Morphology (NORMAL) Platelet Estimate (NORMAL) Platelet Morphology (NORMAL) RBC Morph Micro Appear (NORMAL) VBG pH (7.31-7.41) Ionized Calcium (1.09-1.30) mmol/L Sodium 121 L (135-145) mmol/L Potassium (3.5-4.5) mmol/L Chloride (101-111) mmol/L Carbon Dioxide (21-32) mmol/L Anion Gap (6-13) BUN (6-20) mg/dL Creatinine (0.6-1.3) mg/dL Estimated GFR (MDRD) (>89) Glucose (74-104) mg/dL Lactic Acid 3.8 H* (0.5-2.2) mmol/L Calcium (8.5-10.3) mg/dL Phosphorus (2.5-5.0) mg/dL Magnesium (1.7-2.3) mg/dL Total Bilirubin (0.2-1.0) mg/dL AST (10-42) IU/L ALT (10-60) IU/L Alkaline Phosphatase (42-121) IU/L Total Protein (6.4-8.9) g/dL Albumin (3.2-5.5) g/dL Globulin (2.1-4.2) g/dL Albumin/Globulin Ratio (1.0-2.2) Urine Color [place] Urine Clarity CLOUDY (CLEAR) Urine pH 6.0 (5.0-7.5) PH Ur Specific [place] 1.025 (1.002-1.030) Urine Protein 30 H (NEGATIVE) mg/dL Urine Glucose (UA) NEGATIVE (NEGATIVE) mg/dL Urine Ketones NEGATIVE (NEGATIVE) mg/dL Urine Occult Blood LARGE (NEGATIVE) Urine Nitrite NEGATIVE (NEGATIVE) Urine Bilirubin MODERATE H (NEGATIVE) Urine Urobilinogen 0.2 (NORMAL) (NORMAL) E.U./dL Ur Leukocyte Esterase NEGATIVE (NEGATIVE) Urine RBC None Seen (0-5) /HPF Urine WBC 11-25 H (0-3) /HPF Ur Squamous Epith Cells RARE Squamous (<= Few) Amorphous Sediment Few /LPF Urine Bacteria Many H (None Seen) /HPF Urine Casts 26-50 Fine Granular /LPF Ur Microscopic Review INDICATED Urine Culture Comments INDICATED Urine Sodium 24.6 mmol/L Nasal Screen MRSA (PCR) (NEGATIVE) 06/22/25 06/22/25 Range/Units 13:45 10:55 WBC 21.5 H (4.8-10.8) x10^3/uL RBC 4.41 L (4.70-6.10) 10^6/uL Hgb 12.2 L (14.0-18.0) g/dL Hct 35.8 L (42.0-52.0) % MCV 81.2 (80.0-94.0) fL MCH 27.7 (27.0-31.0) pg MCHC 34.1 (32.0-36.0) g/dL RDW 12.7 (12.0-15.0) % Plt Count 319 (130-450) 10^3/uL MPV 11.0 (7.4-11.4) fL Neut # (Auto) Not Reportable Lymph # (Auto) Not Reportable [place] # (Auto) Not Reportable Eos # (Auto) Not Reportable Baso # (Auto) Not Reportable Absolute Nucleated RBC Not Reportable Total Counted 100 Band Neuts % (Manual) 24 H (0 - 10) % Abnorm Lymph % (Manual) 0 % Metamyelocytes % 2 H ( - 0) % Myelocytes % 2 H ( - 0) % Nucleated RBC % Not Reportable Neutrophils # (Manual) 20.4 H (1.5-6.6) 10^3/uL Lymphocytes # (Manual) 0.0 L (1.5-3.5) 10^3/uL Monocytes # (Manual) 0.2 (0.0-1.0) 10^3/uL Eosinophils # (Manual) 0.0 (0-0.7) 10^3/uL Basophils # (Manual) 0.0 (0-0.1) 10^3/uL Differential Comment MANUAL DIFFERENTIAL WBC Morphology (NORMAL) Platelet Estimate NORMAL (130-450,000) (NORMAL) Platelet Morphology (NORMAL) RBC Morph Micro Appear 2+ ANISOCYTOSIS (NORMAL) VBG pH (7.31-7.41) Ionized Calcium (1.09-1.30) mmol/L Sodium 122 L (135-145) mmol/L Potassium 3.5 (3.5-4.5) mmol/L Chloride 82 L (101-111) mmol/L Carbon Dioxide 28 (21-32) mmol/L Anion Gap 12.0 (6-13) BUN 12 (6-20) mg/dL Creatinine 1.5 H (0.6-1.3) mg/dL Estimated GFR (MDRD) 53 L (>89) Glucose 128 H (74-104) mg/dL Lactic Acid 2.9 H (0.5-2.2) mmol/L Calcium 8.2 L (8.5-10.3) mg/dL Phosphorus (2.5-5.0) mg/dL Magnesium 1.2 L (1.7-2.3) mg/dL Total Bilirubin 3.3 H (0.2-1.0) mg/dL AST 104 H (10-42) IU/L ALT 225 H (10-60) IU/L Alkaline Phosphatase 114 (42-121) IU/L Total Protein 6.5 (6.4-8.9) g/dL Albumin 3.4 (3.2-5.5) g/dL Globulin 3.1 (2.1-4.2) g/dL Albumin/Globulin Ratio 1.1 (1.0-2.2) Urine Color Urine Clarity (CLEAR) Urine pH (5.0-7.5) PH Ur Specific [place] (1.002-1.030) Urine Protein (NEGATIVE) mg/dL Urine Glucose (UA) (NEGATIVE) mg/dL Urine Ketones (NEGATIVE) mg/dL Urine Occult Blood (NEGATIVE) Urine Nitrite (NEGATIVE) Urine Bilirubin (NEGATIVE) Urine Urobilinogen (NORMAL) E.U./dL Ur Leukocyte Esterase (NEGATIVE) Urine RBC (0-5) /HPF Urine WBC (0-3) /HPF Ur Squamous Epith Cells (<= Few) Amorphous Sediment /LPF Urine Bacteria (None Seen) /HPF Urine Casts /LPF Ur Microscopic Review Urine Culture Comments Urine Sodium mmol/L Nasal Screen MRSA (PCR) NEGATIVE (NEGATIVE) Assessment/Plan Problem List (1) Sepsis: Impression: White blood cell count improved from 21.5-16.7. Continue broad-spectrum antibiotic at this time with Zosyn, clindamycin, as well as vancomycin. Concern for worsening sepsis, fasciitis, myositis. Patient tested positive for group A strep, and has been dealing with a upper respiratory infection for the past 2 weeks. Lactic acid has improved from 3.8-1.4 today. Blood cultures with no growth to date. MRI was reviewed by orthopedic surgery, less concern for necrotizing fasciitis. Did take the patient in for incision, drainage, and washout. Cultures were taken in the OR, sent. Have consulted with hand surgery at [place], awaiting callback. Qualifiers: Sepsis acute organ dysfunction status: unspecified Sepsis type: sepsis due to unspecified organism Qualified Code(s): A41.9 - Sepsis, unspecified organism (2) Cellulitis of right arm: Impression: See above. (3) Strep pharyngitis: Impression: Did not receive treatment for this. Went to urgent care yesterday and tested positive for Strep. (4) Hyponatremia: Impression: Improving with IVF. (5) Elevated LFTs: Impression: Improving. (6) Acute kidney injury: Impression: Likely due to above. Worsened by Toradol administration. That desir been stopped. Continue IVF.
[2025-06-23] MEDS: PIPERACILLIN/TAZOBACTAM 3.375 GM in SODIUM CHLORIDE 0.9% MINIBAG 100 ML IV ONE (10:28)
[2025-06-23] MEDS: VANCOMYCIN INJ 2 GM in SODIUM CHLORIDE 0.9% 500 ML IV ONE (11:11)
[2025-06-23] MEDS ORDERED: LIDOCAINE-PF 2% 10 ML AMP SUBQ ONE (12:07)
[2025-06-23] MEDS ORDERED: ROCURONIUM 50 MG/5 ML VIAL ONE (12:07)
[2025-06-23] MEDS ORDERED: PROPOFOL 200 MG/20 ML VIAL IVP ONE (12:07)
[2025-06-23] MEDS ORDERED: ROPIVACAINE 0.5% PF 20 ML VIAL ONE (12:07)
[2025-06-23] MEDS: ACETAMINOPHEN 1,000 MG/100 ML 1,000 MG/100 ML BAG IV ONE (12:08)
[2025-06-23] MEDS ORDERED: MIDAZOLAM 2 MG/2 ML VIAL ONE (12:09)
[2025-06-23] MEDS ORDERED: DEXAMETHASONE 4 MG/ML VIAL ONE (12:09)
[2025-06-23] MEDS ORDERED: fentaNYL 100 MCG/2 ML VIAL ONE (12:09)
[2025-06-23] MEDS ORDERED: ONDANSETRON 4 MG/2 ML VIAL ONE (12:09)
--- NOTE | 2025-06-23 12:10 | Preop H&P Attestation ---
Preop H&P Attestation Preop History & Physical Preop H&P Date: 06/22/25 History & Physical Reviewed and patient examined today.: No change
[2025-06-23] MEDS ORDERED: SILVER SULFADIAZINE CREAM 25 GM TUBE TOP ONE (12:50)
[2025-06-23] MEDS ORDERED: SUGAMMADEX 200 MG/2 ML VIAL IVP ONE (13:07)
[2025-06-23] MEDS ORDERED: HYDROmorphone 0.5 MG/0.5 ML SYRINGE IVP PRN (13:38)
[2025-06-23] MEDS ORDERED: NALOXONE 0.4 MG/ML VIAL IVP PRN (13:38)
[2025-06-23] MEDS ORDERED: ePHEDrine 50 MG/ML VIAL IVP PRN (13:38)
[2025-06-23] MEDS ORDERED: ONDANSETRON 4 MG/2 ML VIAL IVP PRN (13:38)
[2025-06-23] MEDS ORDERED: ATROPINE ABBOJECT 1 MG/10 ML SYRINGE IVP PRN (13:38)
[2025-06-23] MEDS ORDERED: METOCLOPRAMIDE 10 MG/2 ML VIAL IVP PRN (13:38)
[2025-06-23] MEDS ORDERED: fentaNYL 100 MCG/2 ML VIAL IVP PRN (13:38)
[2025-06-23] MEDS ORDERED: MORPHINE 2 MG/ML CARPUJECT IVP PRN (13:38)
--- NOTE | 2025-06-23 13:45 | ANESTHESIA POST OP EVALUATION ---
Anesthesia Post Eval Post Anesthesia Eval Vitals: Last Vital Signs Temp 37.7 C 06/23/25 13:38 Pulse 110 H 06/23/25 13:38 Resp 21 06/23/25 13:38 BP 108/52 L 06/23/25 13:38 Pulse Ox 98 06/23/25 13:38 CV Function Including HR & BP: Stable Pain Control: Satisfactory Nausea & Vomiting: Negative Mental Status: Baseline Respiratory Status: Airway Patent Hydration Status: Satisfactory Anesthesia Complications: None
--- NOTE | 2025-06-23 13:59 | ANESTHESIA POST OP EVALUATION ---
Anesthesia Post Eval Post Anesthesia Eval Vitals: Last Vital Signs Temp 37.7 C 06/23/25 13:55 Pulse 107 H 06/23/25 13:55 Resp 19 06/23/25 13:55 BP 99/50 L 06/23/25 13:55 Pulse Ox 98 06/23/25 13:55 CV Function Including HR & BP: Stable Pain Control: Satisfactory Nausea & Vomiting: Negative Mental Status: Baseline Respiratory Status: Airway Patent Hydration Status: Satisfactory Anesthesia Complications: None
[2025-06-23] MEDS ORDERED: LACTATED RINGERS 1,000 ML IV SCH (14:00)
[2025-06-23] MEDS: SILVER SULFADIAZINE CREAM 25 GM TUBE TOP SCH (14:17)
[2025-06-23] MEDS: PIPERACILLIN/TAZOBACTAM 3.375 GM in SODIUM CHLORIDE 0.9% MINIBAG 100 ML IV SCH (14:24)
[2025-06-23 16:48] LABS: HCT - HEMATOCRIT 27.4 % (42.0-52.0); HGB - HEMOGLOBIN 9.4 g/dL (14.0-18.0); MEAN PLATELET VOLUME 11.7 fL (7.4-11.4); PLT - PLATELET COUNT 238.0 10^3/uL (130-450); RED CELL DISTRIBUTION WIDTH 13.4 % (12.0-15.0)
[2025-06-23 17:01] LABS: BUN - BLOOD UREA NITROGEN 27.0 mg/dL (6-20); CARBON DIOXIDE - CO2 26.0 mmol/L (21-32); CREATININE 1.8 mg/dL (0.6-1.3); GFR - MDRD 43.0 (>89)
[2025-06-23] MEDS: LACTATED RINGERS 1,000 ML IV ONE (22:25)
--- NOTE | 2025-06-23 22:37 | PROVIDER PROGRESS NOTE ---
Progress Note Progress Note Progress Note: Multiple conversations with [facility] this evening. I spoke with Dr. Al of orthopedic surgery, Dr. Romero of acute care surgery and Dr. Villafana of hand surgery. They feel that if the patient needs more debridement it should be done here. They will not accept the patient unless he gets further debridement and then requires transfer. Made a call to our orthopedic surgeon. I am awaiting a callback. I examined the patient. His nerve block placed under anesthesia about 10 hours ago is wearing off. He has sensation to light touch in his fingers and hand. He can feel me stretching his muscles when I make a fist in his hand. I did perform passive stretch of the volar compartment on the right forearm. He does not have increased pain with this. Nor does he have tense tissues on palpation of the volar compartment of the right forearm. I am concerned due to the MRI over read: that did express concern about the volar part compartment of the forearm I am also concerned because this patient has persistent leukocytosis, persistent hyponatremia despite treatment. He is young and healthy and probably is having a robust SIRS response. He appears comfortable in the bed and will let us know if he starts to have increasing discomfort. I think he is a reliable historian.
[2025-06-24 04:25] LABS: HCT - HEMATOCRIT 26.4 % (42.0-52.0); HGB - HEMOGLOBIN 9.2 g/dL (14.0-18.0); MEAN PLATELET VOLUME 11.7 fL (7.4-11.4); PLT - PLATELET COUNT 229.0 10^3/uL (130-450); RED CELL DISTRIBUTION WIDTH 13.6 % (12.0-15.0)
[2025-06-24 04:37] LABS: BUN - BLOOD UREA NITROGEN 26.0 mg/dL (6-20); CARBON DIOXIDE - CO2 26.0 mmol/L (21-32); CREATININE 1.6 mg/dL (0.6-1.3); GFR - MDRD 49.0 (>89)
--- NOTE | 2025-06-24 09:23 | PHARMACY PROGRESS NOTE ---
Vancomycin Therapy Monitoring Vancomycin Therapy Goals Treatment Indication: Cellulitis Vancomycin Target Range: Vancomycin AUC Target Range 400-600 mcg*h/ml Assessment of Current Therapy Vancomycin Loading Dose (GM, if applicable): 2g on 06/23 @1111. random level on 06/24 @ 0804 was 7.5 mcg/ml Plan: New Regimen (Enter new dose and interval): 1g every 12h. Vancomycin Level Recommendation: Vancomycin Level Recommendation (06/26 prior to 0930 dose or sooner if increase in serum creatinine. ) Areas for additonal monitoring Areas for additional monitoring: Therapy de-escalation based on culture results and Acute Kidney Injury
[2025-06-24] MEDS: VANCOMYCIN INJ 1 GM in SODIUM CHLORIDE 0.9% 250 ML IV SCH (10:13)
--- NOTE | 2025-06-24 12:24 | Discharge Summary ---
"Discharge Summary Admit Date: 06/22/25 Discharge Date: 06/24/25 Discharging Provider: Dr. Starr Zambrano Primary Care Provider: Kitty Agee Code Status: Attempt Resuscitation Discharge [facility] Name: [facility] DIAGNOSES Discharge Diagnoses with Status of Each Condition: Sepsisleukocytosis continues to worsen, on admission it was 16.7, today is 25.4. Continue Zosyn and vancomycin. MRI was reviewedit does show fasciitis and myositis. In the outpatient setting, patient tested positive for group A strep. Concern for invasive strep. Orthopedic surgery did complete washout of elbow. Wound cultures have been sent, no organisms have grown at this time. Due to worsening leukocytosis, [facility] was contacted for infectious disease consult and transfer for further management. Hospitalist was spoken with, who graciously accepted. Cellulitis of right armongoing, treatment as above. Strep pharyngitistreatment as above. Hyponatremiaimproving with IV fluids. Elevated LFTsimproving as well. Acute kidney injurycreatinine was 1.8 on admission, improved to 1.6. Continue IV fluid resuscitation. HPI History of Present Illness: Per Uriel Ellis: This is a 35-year-old previously healthy male who presented after 2 weeks of sore throat. He has been at home trying to manage his symptoms with [id number] treatments. For reasons not quite clear to me, he sought care at the urgent care today. He was found to be strep positive. He additionally has a mass on his right elbow that is concerning for abscess versus septic bursitis. It appears cellulitic at least. In the ED, he was found to be febrile. Blood pressure is soft at 98/66. He has been tachycardic up to 136. Shock index is 1.4. He has started getting IV fluids in the ED, and his blood pressure has improved already. He will be admitted to the ICU with concern for invasive strep infection. I discussed with his as well, she confirms the above history. Patient and both agree that he is full code. CONSULTS | PROCEDURES Consultations: Orthopedic surgery Procedures: Elbow MRI, ultrasound plan of care soft tissue of right elbow, and washout of right elbow with orthopedic surgery on 06/23 HOSPITAL COURSE Hospital Course: Patient is a 35-year-old man with no past medical history who had a sore throat for the last 2 weeks. He went to urgent care prior to the ER, and tested positive for strep throat. He then noticed some redness around his right elbow. Due to concern for deeper infection, he was sent to the emergency room. Here, initially an ultrasound was done which showed a 3.6 cm hypoechoic focus along the posterior elbow. This was followed by an MRI which showed deep thin intramuscular fascial edema with muscle edema suggestive of myositis and fasciitis, in addition to the olecranon bursitis, which is likely septic. He underwent a washout with orthopedic surgery, and wound cultures were sent from this, and at this time, no organisms are seen. During the course of his stay, he has been febrile. His white count has increased from 16 on admission to 25 today. Patient needs more specialty care including infectious disease. Plan is to transfer the patient to [facility], where he will be admitted under the hospitalist service, who graciously accepted. Orthopedic surgery and infectious disease will be consulted.General Appearance: positive No acute distress and Alert; negative Anxious Eyes Bilateral: positive Normal inspection, PERRL and EOMI ENT: positive ENT inspection nml, Pharyngeal erythema and Dry mucous membranes; negative Pharynx nml Neck: positive Nml inspection, Thyroid nml and No JVD Respiratory: positive Chest non-tender, No respiratory distress and Breath sounds nml; negative Wheezes, Rales or Rhonchi Cardiovascular: positive No murmur, No gallop and Tachycardia; negative Systolic murmur Abdomen: positive Non-tender, No organomegaly and No distention; negative Guarding or Splenomegaly Back: positive Nml inspection; negative CVA tenderness (R) or CVA tenderness (L) Skin: positive Other (Right extremity with extensive swelling, erythema noted diffusely. Bullae formation around elbow, as well as hand. ) Neurologic/Psychiatric: positive Oriented x3, Motor nml and Mood/affect nml ALLERGIES Allergies Allergy/AdvReac Type Severity Reaction Status Date / Time No Known Drug Allergies Allergy Verified 06/22/25 09:50 MEDICATIONS Ambulatory Orders Medication Instructions Recorded Confirmed No Known Home Medications 06/22/2506/02 Home Medications Other | Comments: General Appearance: positive No acute distress and Alert; negative Anxious Eyes Bilateral: positive Normal inspection, PERRL and EOMI ENT: positive ENT inspection nml, Pharyngeal erythema and Dry mucous membranes; negative Pharynx nml Neck: positive Nml inspection, Thyroid nml and No JVD Respiratory: positive Chest non-tender, No respiratory distress and Breath sounds nml; negative Wheezes, Rales or Rhonchi Cardiovascular: positive No murmur, No gallop and Tachycardia; negative Systolic murmur Abdomen: positive Non-tender, No organomegaly and No distention; negative Guarding or Splenomegaly Back: positive Nml inspection; negative CVA tenderness (R) or CVA tenderness (L) Skin: positive Other (Right extremity with extensive swelling, erythema noted diffusely. Bullae formation around elbow, as well as hand. ) Neurologic/Psychiatric: positive Oriented x3, Motor nml and Mood/affect nml PHYSICAL EXAM AT DISCHARGE Vital Signs: Vital Signs x48h Temp Pulse Resp BP Pulse Ox 06/24/25 18:00 100 24 117/62 94 06/24/25 17:00 99 20 137/80 H 95 06/24/25 16:00 98.7 F 100 20 130/68 06/24/25 15:00 102 H 24 180/121 H 06/24/25 14:00 97 22 112/53 L 06/24/25 13:00 101 H 19 115/57 L 06/24/25 12:00 98.1 F 97 24 109/50 L 98 06/24/25 11:00 99 23 130/82 LABS 06/24/25 04:15 06/24/25 04:15 FOLLOW UP Follow Up: Follow up with PCP. TIME SPENT Time Spent in Discharge (Minutes): 35 Discharge Plan Discharge Patient Disposition: 02 Transfer Acute Care Hosp Condition: Stable Prescriptions: No Action No Known Home Medications Activity Restrictions: Activity as Tolerated Diet: Regular Print Language: German Patient Instructions: Surg Dc Stand Alone Forms: PCP List Follow-up Care: Kitty Agee ARNP [Primary Care Provider, Family Practice] Vitals documented within 30 minutes of discharge?: Yes"
[2025-06-24] MEDS: SACCHAROMYCES BOULARDII 250 MG CAPSULE PO SCH (17:38)
[2025-06-24] MEDS: BENZOCAINE/MENTHOL LOZENGE MM PRN (20:50)
[2025-06-24 21:05] VITALS: TEMP 99.3
[2025-06-24 22:02] VITALS: BP 144/81; O2SAT 96
--- NOTE | 2025-06-26 10:59 | OPERATIVE REPORT ---
Operative Report General Admit Date: 06/23/25 Procedure Data: Operation Date: 06/23/25 12:30 Proposed Procedures p Incision and Drainage RIGHT ELBOW(Right) - Aj Holcomb DO Actual Procedures p Incision and Drainage RIGHT ELBOW OLECRANON ABSCESS(Right) - Aj Holcomb DO Pre-Op Diagnosis: RIGHT ELBOW OLECRANON BURSA INFECTION Anesthesia Type General Case Staff Anesthesia Provider: Rosmery Rogers Anesthesia Provider: Johan Cunha Case Times Into Recovery: 06/23/25 13:26 Procedure Start: 06/23/25 12:55 Procedure End: 06/23/25 13:10 Time out: 06/23/25 12:54 Pre-Op Diagnosis: Right elbow olecranon bursa infection Post Op Diagnosis: Right elbow olecranon bursa infection Procedure Note Estimated Blood Loss (ml): 0 Indications: Right elbow olecranon bursa infection Complications: None Other Other Information/Narrative: The patient was taken to the operative suite and after undergoing a general anesthetic the right arm was prepped and draped in the usual sterile fashion we made a curvilinear incision over the elbow approximately 6 to 7 cm in length and we immediately got into the bursa and we immediately took cultures. It should be noted that the fluid was a serosanguineous fluid and it was not a purulent pus filled fluid. We then went ahead and thoroughly thoroughly irrigated the bursa with 3 L and a pulse lavage and then we closed the subcu tissue with a 2-0 PDS and the skin was closed with renaldo a sterile dressing was applied and we placed some silver-cream over the fracture blisters to help with the healing. It should be noted that I feel that the patient should have an infectious disease consult as he does have a history of strep throat and following sepsis with increased swelling/redness/fracture blisters.
== END 2025-06-24 22:10 | disposition short-term general hospital (02) | DRG 872 ==
LOC: ED 09:08 → ICU 09:08
PROVIDERS: ADMIT Student in an Organized Health Care Education/Training Program; ATTEND Student in an Organized Health Care Education/Training Program